=== PATIENT | female | born 1950 | race Two or more races ===

== ENCOUNTER 2022-06-22 09:00 | Inpatient (IN) | payer OTHER ==
[~2022-06-22] VITALS: Ht 160 cm; Wt 59.4 kg
[~2022-06-22 09:00] MED LIST: CLONAZEPAM1 MG PO; DOCUSATE SODIU100 MG PO; PERCOCET 5/3251 TAB PO
[2022-06-28] MEDS ORDERED: MEDROLPACK PO (09:53)
[2022-06-28] MEDS ORDERED: ACETAMINOPHEN-1 EAC2 PO (09:53)
[2022-06-28] MEDS ORDERED: COLACE100 MG PO (09:53)
[2022-06-28] MEDS ORDERED: ZOFRAN8 MG PO (09:53)
== END 2022-06-29 15:13 | disposition home or self-care (01) | DRG 473 ==
LOC: SURH 06-28 07:00 → O/R 06-28 07:49 → PED 06-28 07:49 → SURH 06-28 09:00 → PED 06-28 15:45
PROVIDERS: ADMIT Orthopaedic Surgery Orthopaedic Surgery of the Spine; ATTEND Orthopaedic Surgery Orthopaedic Surgery of the Spine
PROC: 0RT30ZZ Resection of Cervical Vertebral Disc, Open Approach (ICD-10-PCS; 2022-06-28)
PROC: 0PH304Z Insertion of Internal Fixation Device into Cervical Vertebra, Open Approach (ICD-10-PCS; 2022-06-28)
PROC: 07DS3ZZ Extraction of Vertebral Bone Marrow, Percutaneous Approach (ICD-10-PCS; 2022-06-28)
PROC: 4A12X4Z Monitoring of Cardiac Electrical Activity, External Approach (ICD-10-PCS; 2022-06-28)
PROC: XRG10F3 Fusion of Cervical Vertebral Joint using Radiolucent Porous Interbody Fusion Device, Open Approach, New Technology Group 3 (ICD-10-PCS; principal; 2022-06-28 07:00)
DX: M50.01 Cervical disc disorder with myelopathy, high cervical region (principal); I10 Essential (primary) hypertension

== ENCOUNTER 2024-06-28 10:00 | Inpatient (IN) | payer OTHER ==
[~2024-06-28] VITALS: Ht 162.6 cm; Wt 59.9 kg
[~2024-06-28 10:00] MED LIST changes: +ACETAMINOPHEN-1 EAC2 PO; +COLACE100 MG PO; +MEDROLPACK PO; +ZOFRAN8 MG PO
[2024-06-28] MEDS ORDERED: ZESTRIL5 MG PO (12:43)
[2024-06-28] MEDS ORDERED: TOPROL XL25 M1 PO (12:44)
[2024-06-28] MEDS ORDERED: ZETIA10 MG PO (12:44)
[2024-06-28] MEDS ORDERED: CHILDREN'S ASPI81 MG PO (12:44)
[2024-06-28] MEDS ORDERED: ROSUVASTATIN CAL5 MG PO (12:44)
[2024-06-28] MEDS ORDERED: LORAZEPAM2 MG PO (12:45)
[2024-06-28] MEDS ORDERED: PROZAC20 MG PO (12:45)
[2024-06-28] MEDS ORDERED: ZANAFLEX4 M1 PO (12:46)
[2024-06-28] MEDS ORDERED: CELEBREX200MG PO (12:46)
[2024-06-28] MEDS ORDERED: SINGULAIR10 MG PO (12:46)
[2024-06-28] MEDS ORDERED: PROTONIX20 MG PO (12:46)
[2024-06-28] MEDS ORDERED: VIT D3-VIT K21 EACH PO (12:47)
[2024-06-28 13:24] VITALS: BP 135/65
[2024-06-29 14:36] VITALS: BP 138/75
[2024-07-02] MEDS ORDERED: ENALAPRILAT DIHYDRATE 1.25 MG/ML VIAL IV PRN (07:30)
[2024-07-02] MEDS ORDERED: 0.9 % SODIUM CHLORIDE 1,000 ML IV SCH (07:30)
[2024-07-02] MEDS ORDERED: PROMETHAZINE HCL 50 MG/ML AMPUL IM PRN (07:30)
[2024-07-02] MEDS ORDERED: AMOX-CLAV 875-1 EACH PO (07:37)
[2024-07-02] MEDS ORDERED: MEDROLPACK PO (07:37)
[2024-07-02] MEDS ORDERED: ACETAMINOPHEN-1 EAC2 PO (07:37)
[2024-07-02] MEDS ORDERED: GABAPENTIN100 M2 PO (07:38)
[2024-07-02] MEDS ORDERED: ZOFRAN8 MG PO (07:38)
[2024-07-02] MEDS ORDERED: NEURONTIN800 MG PO (07:39)
[2024-07-02] MEDS ORDERED: MORPHINE SULFATE 4 MG/ML VIAL IV SCH (09:00)
[2024-07-02] MEDS ORDERED: CEFAZOLIN SODIUM 1,000 MG in 0.9 % SODIUM CHLORIDE 50 ML IV SCH (09:00)
[2024-07-02] MEDS ORDERED: TRANEXAMIC ACID 1,000 MG in 0.9 % SODIUM CHLORIDE 100 ML IV ONE (09:15)
[2024-07-02] MEDS ORDERED: HEMOSTATIC MATRIX 1 KIT KIT TOP ONE (09:15)
[2024-07-02] MEDS ORDERED: METHYLPREDNISOLONE ACETATE 80 MG/ML VIAL IU ONE ×2 (09:15)
[2024-07-02] MEDS ORDERED: VANCOMYCIN HCL 1,000 MG VIAL IR ONE (09:15)
[2024-07-02] MEDS ORDERED: CEFAZOLIN SODIUM 2,000 MG in 0.9 % SODIUM CHLORIDE 100 ML IV ONE (09:15)
[2024-07-02] MEDS ORDERED: VANCOMYCIN HCL 1,000 MG in 0.9 % SODIUM CHLORIDE 250 ML IV ONE (09:15)
[2024-07-02] MEDS ORDERED: METHYLPREDNISOLONE SOD SUCC 125 MG VIAL IV ONE ×2 (09:15)
[2024-07-02] MEDS ORDERED: LIDOCAINE HCL 1%/EPINEPHRINE 20ML VIAL IJ ONE (09:15)
[2024-07-02] MEDS ORDERED: MORPHINE SULFATE 4 MG/ML VIAL IV ONE ×2 (11:05→11:35)
[2024-07-02] MEDS ORDERED: MORPHINE SULFATE 4 MG,MORPHINE SULFATE 2 MG IV SCH (13:00)
[2024-07-02] MEDS ORDERED: DOCUSATE SODIUM 100MG CAP PO SCH (13:00)
[2024-07-02 14:01] VITALS: BP 138/75; O2SAT 98
[2024-07-02 15:30] VITALS: BP 115/64; O2SAT 96
[2024-07-02] MEDS ORDERED: MONTELUKAST SODIUM 10 MG TABLET PO SCH (17:00)
[2024-07-02] MEDS ORDERED: ALBUTEROL SULFATE 3 ML/2.5 MG AMPUL.NEB IH SCH (17:00)
[2024-07-02] MEDS ORDERED: FAMOtidine 20 MG TABLET PO SCH (17:00)
[2024-07-02] MEDS ORDERED: METHYLPREDNISOLONE SOD SUCC 125 MG VIAL IV SCH (17:00)
[2024-07-02 20:00] VITALS: BP 128/64; O2SAT 97
[2024-07-02] MEDS ORDERED: VANCOMYCIN HCL 1,000 MG in 0.9 % SODIUM CHLORIDE 250 ML IV SCH (21:00)
[2024-07-02] MEDS ORDERED: LORazepam 1 MG TABLET PO SCH (21:00)
[2024-07-02] MEDS ORDERED: GABAPENTIN 800 MG TABLET PO SCH (21:00)
[2024-07-03] VITALS: BP 116/73; O2SAT 98
[2024-07-03] MEDS ORDERED: SODIUM CHLORIDE 0.45 % 1,000 ML IV SCH
[2024-07-03 04:00] VITALS: BP 103/47; O2SAT 96
[2024-07-03] MEDS ORDERED: ACETAMINOPHEN WITH CODEINE 1 UDTAB TABLET PO PRN (06:00)
[2024-07-03 06:42] LABS: HEMATOCRIT 33.3 % (36.0-45.00); HEMOGLOBIN 11.4 g/dL (12.0-15.00); MEAN CELL VOLUME 87.2 fL (80.00-100.00); MEAN CORPUSCULAR HEMOGLOBIN 29.8 pg (27.00-32.0); MEAN CORPUSCULAR HGB CONC 34.2 g/dl (32.0-36.0); PLATELET COUNT 240 K/uL (150-450); RED BLOOD COUNT 3.82 M/uL (4.00-6.00); RED CELL DISTRIBUTION WIDTH 13.1 % (11.5-14.5)
[2024-07-03 07:18] LABS: CALCIUM 9.1 mg/dL (8.5-10.1); CREATININE SERUM 0.86 mg/dL (0.55-1.02); GFR 64.15; POTASSIUM 4.83 mEq/L (3.5-5.1)
[2024-07-03 08:42] VITALS: BP 122/61; O2SAT 97
[2024-07-03] MEDS ORDERED: METOPROLOL SUCCINATE 25 MG TAB.SR.24H PO SCH (09:00)
[2024-07-03] MEDS ORDERED: LISINOPRIL 5 MG TABLET PO SCH (09:00)
[2024-07-03] MEDS ORDERED: FLUOXETINE HCL 20 MG CAPSULE PO SCH (09:00)
[2024-07-03] MEDS ORDERED: TAMSULOSIN HCL 0.4 MG CAP PO SCH (09:00)
[2024-07-03 12:25] VITALS: BP 138/69; O2SAT 98
[2024-07-03 15:30] VITALS: BP 113/54; O2SAT 96
[2024-07-03] MEDS ORDERED: INSULIN LISPRO 1,000 UNIT/10 ML UNITS SUBCUTANEO PRN (16:15)
[2024-07-03] MEDS ORDERED: DEXTROSE 50 % IN WATER 0.5 G/ML DISP.SYRIN IV PRN (16:15)
[2024-07-03 20:00] VITALS: BP 146/64; O2SAT 98
[2024-07-04] VITALS: BP 138/51; O2SAT 97
[2024-07-04 04:00] VITALS: BP 134/63; O2SAT 98
[2024-07-04 08:42] VITALS: BP 145/72; O2SAT 98
[2024-07-04 12:35] VITALS: BP 146/76; O2SAT 98
== END 2024-07-04 14:49 | disposition designated cancer center or children's hospital (05) | DRG 455 ==
LOC: PED 07-02 05:05 → O/R 07-02 05:05 → SURH 07-02 10:00 → PED 07-02 13:09
PROVIDERS: ADMIT Orthopaedic Surgery Orthopaedic Surgery of the Spine; ATTEND Orthopaedic Surgery Orthopaedic Surgery of the Spine
PROC: 0SG10K0 Fusion of 2 or more Lumbar Vertebral Joints with Nonautologous Tissue Substitute, Anterior Approach, Anterior Column, Open Approach (ICD-10-PCS; 2024-07-02)
PROC: XRGC0R7 Fusion of 2 or more Lumbar Vertebral Joints using Custom-Made Anatomically Designed Interbody Fusion Device, Open Approach, New Technology Group 7 (ICD-10-PCS; 2024-07-02)
PROC: 0ST20ZZ Resection of Lumbar Vertebral Disc, Open Approach (ICD-10-PCS; 2024-07-02)
PROC: 0QB30ZZ Excision of Left Pelvic Bone, Open Approach (ICD-10-PCS; 2024-07-02)
PROC: 07DR0ZZ Extraction of Iliac Bone Marrow, Open Approach (ICD-10-PCS; 2024-07-02)
PROC: 4A1104G Monitoring of Peripheral Nervous Electrical Activity, Intraoperative, Open Approach (ICD-10-PCS; 2024-07-02)
PROC: 0SG1071 Fusion of 2 or more Lumbar Vertebral Joints with Autologous Tissue Substitute, Posterior Approach, Posterior Column, Open Approach (ICD-10-PCS; principal; 2024-07-02 07:00)
DX: M43.16 Spondylolisthesis, lumbar region (principal); M48.062 Spinal stenosis, lumbar region with neurogenic claudication; M51.36 Other intervertebral disc degeneration, lumbar region